=== PATIENT | female | born 1970 | race American Indian/Alaskan Native ===

== ENCOUNTER 2017-09-22 18:14 | Emergency (ER) | payer MEDICAID ==
[2017-09-22 18:24] VITALS: BMI 21.2
[2017-09-22] MEDS ORDERED: Pantoprazole 40 mg EC Tab PO STA (19:42)
--- NOTE | 2017-09-22 19:43 | ED PDOC ---
Arrival/HPI <Nate Saab - Last Filed: 09/22/17 20:55> - General Historian: Patient - History of Present Illness Time/Duration: > week Symptom Onset: Gradual Symptom Course: Unchanged <Carmen Chaves - Last Filed: 09/23/17 01:55> - General Chief Complaint: Abdominal Pain Time Seen by Provider: 09/22/17 19:39 - History of Present Illness Narrative History of Present Illness (Text): 09/22/17 20:20 47 year old female, whose PMH include GERD and chronic low back pain, who presents to the emergency department complaining of abdominal and back pain for a couple of weeks. Patient reports abdominal pain is diffused and back pain spans across back with no radiation to lower extremities. Patient states she was given PPI for GERD, but ran out of medication. Patient also associates pain with decreased appetite. Patient denies, chest pain, shortness of breath, fever , chills nausea, vomiting, diarrhea, cough or other complaints. (Carmen Chaves) Past Medical History - Provider Review Nursing Documentation Reviewed: Yes - Travel History Have you recently traveled outside [place] w/in the past 3 mons?: No - Infectious Disease Hx of Infectious Diseases: None - Reproductive Menopause: No <Carmen Chaves - Last Filed: 09/23/17 01:55> Family/Social History - Physician Review Nursing Documentation Reviewed: Yes Family/Social History: Unknown Family HX <Carmen Chaves - Last Filed: 09/23/17 01:55> Allergies/Home Meds <Nate Saab - Last Filed: 09/22/17 20:55> <Carmen Chaves - Last Filed: 09/23/17 01:55> Allergies/Adverse Reactions: Allergies morphine Allergy (Verified 09/22/17 18:24) ITCHING Review of Systems - Physician Review All systems were reviewed & negative as marked: Yes - Review of Systems Constitutional: absent: Fevers Respiratory: absent: SOB Cardiovascular: absent: Chest Pain Gastrointestinal: Abdominal Pain (diffused ) Musculoskeletal: Back Pain (lower back ) <Carmen Chaves - Last Filed: 09/23/17 01:55> Physical Exam Vital Signs Reviewed: Yes Temperature: Febrile Blood Pressure: Hypertensive Pulse: Regular Respiratory Rate: Normal Appearance: Positive for: Well-Appearing, Non-Toxic, Comfortable Pain Distress: Moderate Mental Status: Positive for: Alert and Oriented X 3 - Systems Exam Head: Present: Atraumatic, Normocephalic Pupils: Present: PERRL Extroacular Muscles: Present: EOMI Conjunctiva: Present: Normal Respiratory/Chest: Present: Clear to Auscultation, Good Air Exchange. No: Respiratory Distress, Accessory Muscle Use, Wheezes, Decreased Breath Sounds, Rales, Retracting, Rhonchi Cardiovascular: Present: Regular Rate and Rhythm, Normal S1, S2. No: Murmurs Abdomen: Present: Tenderness (diffused abdominal tenderness), Normal Bowel Sounds. No: Distention, Peritoneal Signs, Rebound, Guarding Back: Present: Paraspinal Tenderness (point tenderness L4-L% radiating to paraspinal ), Pain with Leg Raise. No: Normal Inspection, Decubitus Ulcer Upper Extremity: Present: Normal Inspection. No: Cyanosis, Edema Lower Extremity: Present: Normal Inspection, NORMAL PULSES, Normal ROM, Neurovascularly Intact, Capillary Refill < 2 s. No: Edema, Cyanosis, Marlen's Sign, Tenderness, Swelling, Erythema, Deformity Neurological: Present: GCS=15, CN II-XII Intact, Speech Normal Skin: Present: Warm, Dry, Normal Color. No: Rashes Psychiatric: Present: Alert, Oriented x 3, Normal Insight, Normal Concentration <Carmen Chaves - Last Filed: 09/23/17 01:55> Vital Signs Temp Pulse Resp BP Pulse Ox 09/22/17 23:09 98.2 F 68 17 128/72 98 09/22/17 18:20 99.7 F H 67 20 151/88 H 100 Medical Decision Making <Nate Saab - Last Filed: 09/22/17 20:55> - Lab Interpretations I have reviewed the lab results: Yes - RAD Interpretation Teletype Operator: Radiologist <Carmen Chaves - Last Filed: 09/23/17 01:55> ED Course and Treatment: 09/22/17 Impression: 47 year old female with diffused abdominal pain and point tenderness on L4-L5 paraspinal and + pain with leg raise. Plan: -- Labs -- Lidoderm, Protonix, Toradol -- Urinalysis -- Ultrasound abdomen -- Reassess and disposition Progress Notes: 09/22/17 22:22 IMPRESSION: 1. Complex RIGHT kidney lesion, incompletely characterized. Recommend nonemergent MRI. 2. Mild biliary ductal dilatation, likely within normal limits for cholecystectomy. Correlate with laboratory values. 3. Incidental/non-acute findings are described above. Labs wnl and neg UA Pt given Percocet 5/325 for pain 09/22/17 22:36 advised to follow up with china painter in 2 days PPI for gastritis f/u wit PMD to discuss finding on right kidney VSS on d/c 09/23/17 01:54 (Carmen Chaves) - Lab Interpretations Lab Results: 09/22/17 19:57 09/22/17 19:57 Lab Results 09/22/17 19:57: Sodium 135, Potassium 3.2 L, Chloride 95 L, Carbon Dioxide 29, Anion Gap 14, BUN 12, Creatinine 0.5 L, Est GFR ( Amer) > 60, Est GFR ( Non-Af Amer) > 60, Random Glucose 107, Calcium 9.3, Total Bilirubin 0.9, AST 39 H, ALT 23, Alkaline Phosphatase 85, Total Protein 7.9, Albumin 4.5, Globulin 3.5 , Albumin/Globulin Ratio 1.3 09/22/17 19:57: WBC 6.8, RBC 4.54, Hgb 10.7 L, Hct 32.6 L, MCV 71.8 L, MCH 23.6 L, MCHC 32.8, RDW 17.1 H, Plt Count 333, MPV 8.5 - RAD Interpretation Narrative RAD Interpretations (Text): 09/22/17 22:22 EXAM: US Abdomen Complete CLINICAL HISTORY: 47 years old, female; Pain; Abdominal pain; Prior surgery; Additional info: Diffuse abdominal pain TECHNIQUE: Real-time ultrasound of the abdomen (complete) with image documentation. COMPARISON: No relevant prior studies available. FINDINGS: Liver: Normal echogenicity. No mass. No intrahepatic bile duct dilatation. Gallbladder: Cholecystectomy. Common bile duct: 0.8 cm in diameter. No stones. Pancreas: Unremarkable as visualized. Kidneys: Normal echogenicity. 2.1 x 2.1 x 2.3 cm hypoechoic lesion with internal echoes within right kidney. No hydronephrosis. Spleen: No splenomegaly. Aorta: Unremarkable. No aneurysm. Inferior vena cava: Unremarkable. Free fluid: No significant free fluid. IMPRESSION: 1. Complex RIGHT kidney lesion, incompletely characterized. Recommend nonemergent MRI. 2. Mild biliary ductal dilatation, likely within normal limits for cholecystectomy. Correlate with laboratory values. 3. Incidental/non-acute findings are described above. (Carmen Chaves) Radiology Orders: 09/22/17 19:39 ABDOMEN COMPLETE [US] Stat - Medication Orders Current Medication Orders: Discontinued Medications Ketorolac Tromethamine (Toradol) 30 mg IVP STAT STA Stop: 09/22/17 20:05 Last Admin: 09/22/17 20:37 Dose: 30 mg MAR Pain Assessment Document 09/22/17 20:37 IT (Rec: 09/22/17 20:37 IT [id number]) Pain Reassessment Is this a pain reassessment? No Sleep Is patient sleeping during reassessment? No Presence of Pain Presence of Pain Yes Pain Scale Used Pain Scale Used Numeric IVP Administration Document 09/22/17 20:37 IT (Rec: 09/22/17 20:37 IT [id number]) Charges for Administration # of IVP Administrations 1 Lidocaine (Lidoderm) 1 ea TD DAILY SHINE Lidocaine (Lidoderm) 1 ea TD STAT STA Stop: 09/22/17 20:04 Last Admin: 09/22/17 20:37 Dose: 1 ea MAR Transdermal Patch Site Document 09/22/17 20:37 IT (Rec: 09/22/17 20:37 IT [id number]) Transdermal Patch Site Transdermal Patch Site Left Lower Back Oxycodone/Acetaminophen (Percocet 5/325 Mg Tab) 1 tab PO STAT STA Stop: 09/22/17 21:54 Last Admin: 09/22/17 22:09 Dose: 1 tab MAR Pain Assessment Document 09/22/17 22:09 IT (Rec: 09/22/17 22:09 IT [id number]) Pain Reassessment Is this a pain reassessment? No Sleep Is patient sleeping during reassessment? No Presence of Pain Presence of Pain Yes Pantoprazole Sodium (Protonix Ec Tab) 40 mg PO STAT STA Stop: 09/22/17 19:43 Last Admin: 09/22/17 20:37 Dose: 40 mg Potassium Chloride (K-Dur 20 Meq Er Tab) 40 meq PO STAT STA Stop: 09/22/17 21:48 Last Admin: 09/22/17 22:09 Dose: 40 meq - PA / DIVISION MANAGER / Resident Statement MD/DO has reviewed & agrees with the documentation as recorded. <Nate Saab - Last Filed: 09/22/17 20:55> - Scribe Statement The provider has reviewed the documentation as recorded by the Scribe <Carmen Chaves - Last Filed: 09/23/17 01:55> - Scribe Statement Cecilia Daniels Provider Scribe Attestation: All medical record entries made by the Scribe were at my direction and personally dictated by me. I have reviewed the chart and agree that the record accurately reflects my personal performance of the history, physical exam, medical decision making, and the department course for this patient. I have also personally directed, reviewed, and agree with the discharge instructions and disposition. (Carmen Chaves) Disposition/Present on Arrival <[facility] - Last Filed: 09/22/17 20:55> - Present on Arrival Any Indicators Present on Arrival: Yes History of DVT/PE: No History of Uncontrolled Diabetes: No Urinary Catheter: No History of Decub. Ulcer: No History Surgical Site Infection Following: None - Disposition Have Diagnosis and Disposition been Completed?: Yes Disposition Time: 22:40 Patient Plan: Discharge <Carmen Chaves - Last Filed: 09/23/17 01:55> - Disposition Diagnosis: Chronic low back pain with bilateral sciatica, Facet arthritis of lumbar region Disposition: HOME/ ROUTINE Condition: GOOD Discharge Instructions (ExitCare): Low Back Pain (DC) Additional Instructions: YOSELIN BARAHONA, thank you for letting us take care of you today. Your provider was Nate Saab MD and you were treated for BACK PAIN. The emergency medical care you received today was directed at your acute symptoms. If you were prescribed any medication, please fill it and take as directed. It may take several days for your symptoms to resolve. Return to the Emergency Department if your symptoms worsen, do not improve, or if you have any other problems. PLEASE SEE YOUR PRIMARY CARE DOCTOR IN 2 DAYS TO FOLLOW UP WITH FINDINGS ON ABDOMINAL ULTRASOUND; NON-EMERGENT MRI RECOMMENDED Please contact your doctor or call one of the physicians/clinics you have been referred to that are listed on the Patient Visit Information form that is included in your discharge packet. Bring any paperwork you were given at discharge with you along with any medications you are taking to your follow up visit. Our treatment cannot replace ongoing medical care by a primary care provider outside of the emergency department. Thank you for allowing the [facility] team to be part of your care today. If you had an X-Ray or CT scan: A Radiologist will review the ED reading if any change in treatment is needed we will contact you. If you had a blood, urine, or wound culture: It will take several days for the results, if any change in treatment is needed we will contact you. If you had an STI test: It will take 48 hours for the results. Please call after 1 week if you have not heard back. Prescriptions: Cyclobenzaprine [Flexeril] 5 mg PO BID #10 tab Lidocaine 1 each TP DAILY 5 Days #5 adh..patch traMADol [Ultram] 50 mg PO BID 3 Days #6 tab Referrals: Asuncion Matos MD [Primary Care Provider] - Follow up with primary Huey Monsalve MD [Staff Provider] - Follow up with primary Forms: [employer] ([place]ican)
[2017-09-22] MEDS ORDERED: Lidocaine 5% Patch TD STA (20:03)
[2017-09-22 20:09] LABS: HEMOGLOBIN 10.7 g/dL (12.0-16.0); MEAN CELL VOLUME 71.8 fl (80.0-105.0); MEAN CORPUSCULAR HEMOGLOBIN 23.6 pg (25.0-35.0); MEAN CORPUSCULAR HGB CONC 32.8 g/dl (31.0-37.0); MEAN PLATELET VOLUME 8.5 fl (7.0-11.0); RBC 4.54 10^6/uL (3.5-6.1); RED CELL DISTRIBUTION WIDTH 17.1 % (11.5-14.5); WHITE BLOOD COUNT 6.8 10^3/ul (4.5-11.0)
[2017-09-22 20:20] LABS: ALB/GLOB RATIO 1.3 (1.1-1.8); ALBUMIN 4.5 g/dL (3.0-4.8); CALCIUM 9.3 mg/dL (8.4-10.5); GFR AFRICAN-AMERICAN > 60; GFR NON-AFRICAN AMERICAN > 60
[2017-09-22 20:36] LABS: ALT/SGPT 23 U/L (7-56); AST/SGOT 39 U/L (14-36); BLOOD UREA NITROGEN 12 mg/dL (7-21)
[2017-09-22] MEDS ORDERED: Potassium Chloride 20 mEq ER Tab PO STA (21:47)
[2017-09-22] MEDS ORDERED: Oxycodone/Acetaminophen 5/325 mg Tab PO STA (21:53)
[2017-09-22 23:10] VITALS: BP 128/72; PULSE 68; RESP 17; TEMP 98.2; O2SAT 98
[2017-09-23] MEDS ORDERED: Lidocaine 5% Patch TD SCH (10:00)
--- NOTE | 2017-09-23 13:22 | US ---
Date of service: The the the 09/22/2017 HISTORY: Diffuse Abdominal pain COMPARISON: None. TECHNIQUE: Sonographic evaluation of the abdomen. FINDINGS: LIVER: Measures 15.0 cm. Normal echogenicity of the liver parenchyma. No mass. No intrahepatic bile duct dilatation. No ascites seen. GALLBLADDER: Cholecystectomy COMMON BILE DUCT: Common bile duct is mildly dilated measuring 8 mm likely due to post cholecystectomy state. No definitive evidence of intrinsic luminal common bile duct calculi. PANCREAS: Unremarkable as visualized. No mass. No ductal dilatation. RIGHT KIDNEY: Measures 10.3 x 3.8 x 5.7cm. There is a complex mass right kidney that measures approximately 2.1 x 2.1 x 2.3 cm. While this could represent a cyst with debris or old hemorrhage, the possibility of a solid lesion including neoplasm must be considered. Followup pre and post-contrast MRI recommended. Otherwise the right kidney exhibits normal echogenicity. No calculus or hydronephrosis. LEFT KIDNEY: Measures 10.7 x 6.0 x 5.3cm. Normal echogenicity. No calculus, mass, or hydronephrosis. SPLEEN: Normal in size and contour. No mass. AORTA: No aneurysmal dilatation. IVC: Unremarkable. OTHER FINDINGS: None. IMPRESSION: Cholecystectomy with mild dilatation of the common bile duct. No evidence of choledocholithiasis. Complex mass right kidney that measures approximately 2.1 x 2.1 x 2.3 cm. While this could represent a cyst with debris or old hemorrhage,, the possibility of a solid lesion including neoplasm must be considered. Followup pre and post-contrast MRI recommended. Note this report was placed in PA review folder for followup
== END 2017-09-22 23:10 | disposition home or self-care (01) ==
LOC: ED 18:14 → MERGE 18:14 → ED 23:10
DX: M54.42 Lumbago with sciatica, left side (principal); M54.41 Lumbago with sciatica, right side; G89.29 Other chronic pain; M46.86 Other specified inflammatory spondylopathies, lumbar region
CPT/HCPCS: 76700; 80053; 85027; 96374; 99283; J1885